=== PATIENT | female | born 1975 | race Caucasian/White ===

== ENCOUNTER 2023-03-06 17:47 | Emergency (ER) | payer BC, SELFPAY ==
[2023-03-06 17:50] VITALS: BP 135/80; PULSE 88; RESP 16; TEMP 36.6; O2SAT 100; BMI 24.0
--- NOTE | 2023-03-06 18:10 | ED.GENADUL1 ---
HPI - General Adult General Chief complaint: Headache Stated complaint: Headache Time Seen by Provider: 03/06/23 18:03 Source: patient Mode of arrival: walk-in History of Present Illness HPI narrative: frontal throbbing headache began yesterday and then this morning around 830am she developed stabbing right temporal pain. No photophobia, nausea, vomiting, ringing in the ears or visual changes. She said this is typical of her prior migraines, which she gets about twice a year. They usually respond to excedrin migraine - this one has not. No neuro deficits. No recent trauma to the head or neck. Related Data Allergies Allergy/AdvReac Type Severity Reaction Status Date / Time No Known Drug Allergies Allergy Verified 03/06/23 17:54 Exam Narrative Exam Narrative: Nurses notes and vital signs reviewed and patient is not hypoxic. afebrile General: Well-appearing and in no apparent distress. Skin: Warm, dry, no pallor noted. No rash. Head: Normocephalic, atraumatic. Neck: Supple, non-tender. no cervical lymphadenopathy. No meningismus. Eye: Pupils are equal, round and EOMI. No scleral icterus. no nystagmus Ears, Nose, Mouth, and Throat: Oral mucosa is moist Cardiovascular: Regular Rate and Rhythm without murmur, gallop or rub. Respiratory: No accessory muscle use or respiratory distress. Lungs are clear to auscultation, no wheezing, rales or rhonchi Musculoskeletal: normal ROM Neurological: A&O x4. No cranial nerve dysfunction observed. No truncal ataxia. Moves all extremities. Sensation intact. Psychiatric: Cooperative and interactive. Normal mood and affect. Constitutional Vital Signs, click to edit/add: Last Vital Signs Temp 98 F 03/06/23 17:50 Pulse 88 03/06/23 17:50 Resp 16 03/06/23 17:50 BP 135/80 03/06/23 17:50 Pulse Ox 100 03/06/23 17:50 Course Vital Signs Vital signs: Vital Signs Temperature 98 F 03/06/23 17:50 Pulse Rate 88 03/06/23 17:50 Respiratory Rate 16 03/06/23 17:50 Blood Pressure 135/80 03/06/23 17:50 Pulse Oximetry 100 03/06/23 17:50 Temperature 98 F 03/06/23 17:50 Pulse Rate 88 03/06/23 17:50 Respiratory Rate 16 03/06/23 17:50 Blood Pressure 135/80 03/06/23 17:50 Pulse Oximetry 100 03/06/23 17:50 Medical Decision Making MDM Narrative Medical decision making narrative: peripheral IV established and the patient was ordered to receive IV Toradol, IV Solu-Medrol and IV Zofran. On recheck at 645pm she felt better with decrease in both the frontal and right temporal headache/pain. I asked the EED nurse to give the patient a dose of Benadryl IV and then the patient was discharged home. . Discharge Plan Discharge Chief Complaint: Headache Clinical Impression: Migraine Patient Disposition: Home, Self-Care Time of Disposition Decision: 18:47 Instructions: Migraine Headache (ED) Stand Alone Forms: Portal Instructions Referrals: Physician,Non-Staff, MD [Primary Care Provider] - 1 week
[2023-03-06] MEDS: KETOROLAC TROMETHAMINE 30 MG/ML VIAL IVP (18:25)
[2023-03-06] MEDS: ONDANSETRON PF 4 MG/2 ML VIAL IV (18:25)
[2023-03-06] MEDS: METHYLPREDNISOLONE SOD SUCC PF 125 MG/2 ML VIAL IVP (18:25)
[2023-03-06] MEDS: DIPHENHYDRAMINE HCL 50 MG/ML (1ML) VIAL 25 MG IV (18:59)
== END 2023-03-06 19:04 | disposition home or self-care (01) ==
PROVIDERS: Emergency Provider Emergency Medicine
DX: G43.909 Migraine, unspecified, not intractable, without status migrainosus (principal)
CPT/HCPCS: 96374; 96375; 99284; J2930